=== PATIENT | male | born 1975 | race Caucasian/White ===

== ENCOUNTER 2020-10-24 07:00 | Outpatient (RCR) | payer BC | END 2020-10-27 | LOC: PT 07:00 | PROVIDERS: ATTEND Orthopaedic Surgery | DX: M54.5 Low back pain (principal); M62.81 Muscle weakness (generalized); M53.86 Other specified dorsopathies, lumbar region ==

== ENCOUNTER 2020-11-03 14:58 | Outpatient (RCR) | payer BC | END 2020-11-27 | LOC: PT 14:58 | PROVIDERS: ATTEND Orthopaedic Surgery | DX: M54.5 Low back pain (principal); M53.86 Other specified dorsopathies, lumbar region; M62.81 Muscle weakness (generalized) | CPT/HCPCS: 97139 ==

== ENCOUNTER 2021-07-17 06:57 | Outpatient (RCR) | payer BC | END 2021-07-30 | LOC: PT 06:57 | PROVIDERS: ATTEND Family Medicine Sports Medicine | DX: M51.26 Other intervertebral disc displacement, lumbar region (principal) | CPT/HCPCS: 97139 ==